=== PATIENT | male | born 1990 | race Two or more races ===

== ENCOUNTER 2017-02-14 10:42 | Emergency (ER) | payer OTHER ==
[2017-02-14] MEDS ORDERED: NO HOME MEDICATION XX (11:00)
[2017-02-14] MEDS ORDERED: TRAMADOL HCL50 M2 PO (12:43)
[2017-02-14] MEDS ORDERED: KEFLEX500 M4 PO (12:43)
== END 2017-02-14 13:04 ==
LOC: EDMED 10:42
PROC: 0HQFXZZ Repair Right Hand Skin, External Approach (ICD-10-PCS; principal; 2017-02-14)
DX: S66.320A Laceration of extensor muscle, fascia and tendon of right index finger at wrist and hand level, initial encounter (principal); W45.8XXA Other foreign body or object entering through skin, initial encounter; Y92.69 Other specified industrial and construction area as the place of occurrence of the external cause; Y99.0 Civilian activity done for income or pay